=== PATIENT | female | born 1970 | race Asian ===

== ENCOUNTER 2018-12-11 09:31 | Outpatient (CLI) | payer OTHER ==
--- NOTE | 2018-12-11 11:42 | XRAY Report ---
Reason: PNEUMONIA, UNSPECIFIED ORGANISM Procedure Date: 12/11/2018 Accession Number: [id number] / [id number] Procedure: XRN - Chest 2 View X-Ray CPT Code: 84284 FULL RESULT: EXAM: CHEST RADIOGRAPHY EXAM DATE: 12/11/2018 09:48 AM. CLINICAL HISTORY: PNEUMONIA, UNSPECIFIED ORGANISM. COMPARISON: None. TECHNIQUE: 2 views. FINDINGS: Lungs/Pleura: No focal opacities evident. No pleural effusion. No pneumothorax. Normal volumes. Mediastinum: Heart and mediastinal contours are within normal limits. Other: None. IMPRESSION: No pneumonia. RADIA
== END 2018-12-11 09:32 | disposition home or self-care (01) ==
LOC: DI.N 09:31
PROVIDERS: ATTEND Specialist
DX: J18.9 Pneumonia, unspecified organism (principal)
CPT/HCPCS: 71046